=== PATIENT | female | born 1995 | race Caucasian/White ===

== ENCOUNTER 2023-11-16 08:02 | Outpatient (CLI) | payer OTHER, SELFPAY ==
--- OUTSIDE RECORDS SUMMARY | 2023-11-16 08:04 | XMS_ITS | Clinical Summary ---
Author Organization [employer] [facility] Address [place], [place] [address] Care Team Providers Care Squad Leader Name Role Phone Raquel Goodwin MD Primary Care Provider [phone] Wendy Ken MD Unavailable [phone] Allergies No known active allergies Medications Medication Sig Dispensed Refills Start Date End Date Status ., 1.5-30 mg-mcg tab tablet Take by mouth once daily. 05/20/2019 Active Family History Medical History Relation Name Comments Genetic Other cancer great au nt - great grandmother Relation Name Status Comments Other Social History Tobacco Use Types Packs/Day Years Used Date Smoking Tobacco: Never Smokeless Tobacco: Never Alcohol Use Standard Drinks/Week Comments Not Currently 0 (1 standard drink = 0.6 oz pur e alcohol) Social Connections Answer Date Recorded Frequency of Communication with Friends and Fami ly Not on file 06/19/2021 Financial Resource Strain Answer Date R ecorded Difficulty of Paying Living Expenses Not on file 06/19/2021 Difficulty of Paying Living Expenses Not on file 06/19/2021 Sex and Gender Information Value Date Recorded Sex Assigned at Not on file Gender Identity Not on file Sexual Orientation Not on file Obstetrics History Last Filed Vital Signs Vital Sign Reading Time Taken Comments Blood Pressure 121/73 08/29/2019 3:09 PM CDT Pulse 57 08/29/2019 3:09 PM CDT Temperature - - Respiratory Rate 20 08/29/2019 3:06 PM CDT Oxygen Saturation 99% 08/29/2019 3:06 PM CDT Inhaled Oxygen Concentration - - Weight 62.6 kg (138 lb) 08/29/2019 3:06 PM CDT Height 167.6 cm (5' 6) 08/29/2019 3:06 PM CDT Body Mass Index 22.27 08/29/2019 3:06 PM CDT Plan of Treatment Health Maintenance Due Date Last Done Comments Tdap 2005 Depression screening for age 12+ 2006 HIV for age 15-65 2009 Hepatitis C screening for age 18-79 2012 Tetanus booster 2014 BMI (ht and wt on same day) for age 18+ 08/28/2020 08/29/2019 Pap test for age 21-65 11/27/2020 8 (Verified in Care Everywhere or Patient Record) COVID-19 vaccine series (2022-24 season) 2023 Influenza for age 9-49 02/18/2024 Pneumococcal series for age 6-64 Aged Out No longer eligible based on patient's age to complete this topic Care Teams Squad Leader Relationship Specialty [place] [address] [place] [address] PCP - General Family Practice 08/29/19 Wendy Ken MD [address] [place] [address] Cardiology Cardiovascular Disease 08/29/19
--- NOTE | 2023-11-16 08:15 | CRLHL7_ITS ---
For Patients: As a result of the Cures Act, medical imaging exams and procedure reports are released immediately into your electronic medical record. You may view this report before your referring provider. If you have questions, please contact your health care provider. INDICATION: First trimester scan, establish dates. COMPARISON: None. TECHNIQUE: Real-time champion-scale imaging of the pelvis was performed. FINDINGS: Sonographic imaging demonstrates a single living intrauterine gestation. The embryo demonstrates a regular cardiac rate measuring 165 beats per minute. The embryo`s crown-rump length measurement of 3.4 cm corresponds to a gestational age of 10 weeks 2 days with a sonographic due date of 06/11/2024. There is a normal-appearing yolk sac. There are no gross abnormalities noted within the embryo at this early state of development. The gestational sac has a normal appearance. There is no evidence of a perigestational hemorrhage. The amount of fluid within the sac appears appropriate for gestational age. The cervix is closed. The myometrium appears normal. The ovaries are of normal size. Corpus luteal cyst left ovary. There are no suspicious fluid collections noted in the cul-de-sac. IMPRESSION: Normal first trimester OB ultrasound exam. Gestational age calculated at 10 weeks 2 days with a sonographic due date of 06/11/2024. Dictated by Nelson Yu MD @ 11/16/2023 10:42:25 AM (Electronically Signed)
== END 2023-11-16 08:03 | disposition home or self-care (01) ==
LOC: US 08:03
PROVIDERS: PCP Family Medicine; Visit Provider Physician Assistant
DX: Z34.91 Encounter for supervision of normal pregnancy, unspecified, first trimester (principal); Z3A.10 10 weeks gestation of pregnancy
CPT/HCPCS: 76801; 86592; 86703; 86704; 86706; 86762; 86787; 86803; 86850; 86900; 86901; 87086; 87340; 87491; 87591

== ENCOUNTER 2023-11-16 09:38 | Outpatient (CLI) | payer OTHER, SELFPAY ==
--- OUTSIDE RECORDS SUMMARY | 2023-11-16 09:41 | XMS_ITS | Clinical Summary ---
Author Organization [employer] [facility] Address [place], [place] [address] Care Team Providers Care Research And Development Researcher Name Role Phone Raquel Goodwin MD Primary Care Provider [phone] Wendy Ken MD Unavailable [phone] Allergies No known active allergies Medications Medication [...] age to complete this topic Care Teams Research And Development Researcher Relationship Specialty [place] [address] [place] [address] PCP - General Family Practice 08/29/19 Wendy Ken MD [address] [place] [address] Cardiology Cardiovascular Disease 08/29/19
[2023-11-16 15:51] LABS: Chlamydia DNA Amplified* NOT DETECTED (No Detected); GC DNA Amplified* NOT DETECTED (No Detected)
== END 2023-11-16 09:39 | disposition home or self-care (01) ==
PROVIDERS: PCP Family Medicine; Visit Provider Physician Assistant
DX: Z34.91 Encounter for supervision of normal pregnancy, unspecified, first trimester (principal); Z12.4 Encounter for screening for malignant neoplasm of cervix; Z3A.09 9 weeks gestation of pregnancy
CPT/HCPCS: 86592; 86703; 86704; 86706; 86762; 86787; 86803; 86850; 86900; 86901; 87086; 87340; 87491; 87591

== ENCOUNTER 2024-02-02 13:08 | Outpatient (CLI) | payer OTHER, SELFPAY ==
--- NOTE | 2024-02-02 13:15 | CRLHL7_ITS ---
For Patients: As a result of the Century Cures Act, medical imaging exams and procedure reports are released immediately into your electronic medical record. You may view this report before your referring provider. If you have questions, please contact your health care provider. INDICATION: Evaluate anatomy. COMPARISON: 11/16/2023 TECHNIQUE: Real time champion scale imaging of the fetus was performed as well as color Doppler analysis of the umbilical vessels. FINDINGS: Sonographic imaging demonstrates a single living intrauterine gestation. Fetus demonstrates a regular cardiac rate of 145 beats per minute. Fetus has a breech position. The placenta lies anteriorly without evidence of placenta previa. Edge of the placenta is located 3.7 cm from the internal cervical os. Amniotic fluid volume appears normal. Single deepest vertical pocket: 5.0 cm. The cervix is closed and measures 4.2 cm in length. The composite ultrasound gestational age is calculated at 22 weeks 1 day with an estimated sonographic due date of 06/06/2024. The estimated weight is 444 grams which lies at the 87th %. The following biometric measurements were obtained: Biparietal diameter: 5.1 cm/21 weeks 2 days 68th% Head circumference: 19.7 cm/21 weeks 6 days 82nd% Abdominal circumference: 17.2 cm/22 weeks 1 day 83rd% Femur length: 3.5 cm/21 weeks 1 day 50th% The HC/AC ratio measures: 1.14 range (1.05-1.23) On anatomic survey, there is a normal appearance of the cerebral ventricles, cavum septi pellucidi, cisterna magna and cerebellum. The nose, lips, and facial profile appear normal. The cervical, thoracic and lumbar spine are well visualized and appear normal. There is a normal four-chamber heart view and the left and right ventricular outflow tracts appear normal. The diaphragm and stomach appear normal. The kidneys and bladder also appear normal. There is a normal three-vessel cord and cord insertion site. The four extremities appear normal. IMPRESSION: Sonographic gestational age 22 weeks 1 day and sonographic due date of 06/06/2024. Sonographic age 9 days ahead of the clinical age. Estimated weight 87th percentile. Abdominal circumference 83rd percentile. No intrinsic abnormalities noted on anatomic survey. Dictated by Nelson Yu MD @ 02/02/2024 3:29:44 PM (Electronically Signed)
== END 2024-02-02 13:09 | disposition home or self-care (01) ==
LOC: US 13:08
PROVIDERS: PCP Family Medicine; Visit Provider Obstetrics & Gynecology
DX: Z34.92 Encounter for supervision of normal pregnancy, unspecified, second trimester (principal); Z3A.22 22 weeks gestation of pregnancy
CPT/HCPCS: 76805

== ENCOUNTER 2024-04-05 15:06 | Outpatient (CLI) | payer OTHER, SELFPAY ==
--- OUTSIDE RECORDS SUMMARY | 2024-04-09 14:57 | XMS_ITS | Clinical Summary ---
Author Organization [employer] [facility] Address [place], [place] [address] Care Team Providers Care Program Writer Name Role Phone Raquel Goodwin MD Primary Care Provider [phone] Wendy Ken MD Unavailable [phone] Allergies No known active allergies Medications Medication [...] Everywhere or Patient Record) COVID-19 vaccine series (2023- season) 2024 Influenza for age 9-49 02/18/2024 Pneumococcal series for age 6-64 Aged Out No longer eligible based on patient's age to complete this topic Care Teams Program Writer Relationship Specialty [place] [address] [place] [address] PCP - General Family Practice 08/29/19 Wendy Ken MD [address] [place] [address] Cardiology Cardiovascular Disease 08/29/19
== END 2024-04-05 15:07 | disposition home or self-care (01) ==
LOC: NFLDREF 04-09 14:55
PROVIDERS: PCP Family Medicine; Referring Provider Family Medicine; Visit Provider Obstetrics & Gynecology
DX: Z34.93 Encounter for supervision of normal pregnancy, unspecified, third trimester (principal); Z3A.29 29 weeks gestation of pregnancy
CPT/HCPCS: 86592

== ENCOUNTER 2024-05-17 13:45 | Outpatient (CLI) | payer OTHER, SELFPAY ==
[2024-05-18 14:42] LABS: Strep B DNA Probe Negative (Negative)
[2024-05-18 14:45] LABS: Strep B Susceptibility Needed? No
== END 2024-05-17 13:46 | disposition home or self-care (01) ==
PROVIDERS: PCP Family Medicine; Visit Provider Obstetrics & Gynecology
DX: Z34.93 Encounter for supervision of normal pregnancy, unspecified, third trimester (principal); Z3A.35 35 weeks gestation of pregnancy
CPT/HCPCS: 82565; 82570; 84156; 84450; 84460; 84520; 87081; 87653

== ENCOUNTER 2024-05-17 14:15 | Outpatient (CLI) | payer OTHER, SELFPAY ==
--- OUTSIDE RECORDS SUMMARY | 2024-05-17 14:22 | XMS_ITS | Clinical Summary ---
Author Organization [employer] [facility] Address [place], [place] [address] Care Team Providers Care Principal Strategist Name Role Phone Raquel Goodwin MD Primary Care Provider [phone] Wendy Ken MD Unavailable [phone] Allergies No known active allergies Medications Medication [...] age to complete this topic Care Teams Principal Strategist Relationship Specialty [place] [address] [place] [address] PCP - General Family Practice 08/29/19 Wendy Ken MD [address] [place] [address] Cardiology Cardiovascular Disease 08/29/19
[2024-05-17 14:47] VITALS: BP 126/70; PULSE 75
[2024-05-17 15:02] VITALS: BP 126/73; PULSE 80
[2024-05-17 15:17] VITALS: BP 122/69; PULSE 70
[2024-05-17 15:32] VITALS: BP 123/70; PULSE 74
[2024-05-17 15:48] VITALS: BP 119/72; PULSE 74
[2024-05-17 16:02] VITALS: BP 125/76; PULSE 71
--- NOTE | 2024-05-17 16:25 | PC.OBNST ---
NST Note NST Note Start: 05/17/24 15:00 Freq: ONCE Status: Active Protocol: Document 05/17/24 15:[address] [facility] (Rec: 05/17/24 16:[address] [facility] Desktop) NST Note 1 Para (# of births) 0 EDC 06/15/24 Gestational Age In Weeks & Days 35 Weeks & 6 Days Patient Presented with Complaint(s) of Other Other Complaints Elevated BP in clinic Reactive Yes Appropriate for Gestational Age Yes MACKENZIE Méndez RN Date 05/17/24 Reactive Yes Appropriate for Gestational Age Yes MACKENZIE Salvador RN Date 05/17/24 OB NST charge Yes Complete NST Note via Write Note Yes The provider's electronic signature indicates the NST is reactive/appropriate for gestational age. *Note to provider: If an addendum is required, open the patient's chart and click on the note under the Nurse/Allied Health tab.
== END 2024-05-17 16:15 | disposition home or self-care (01) ==
LOC: OB OUT 14:20 → OB 14:34
PROVIDERS: PCP Family Medicine; Visit Provider Obstetrics & Gynecology
DX: Z34.93 Encounter for supervision of normal pregnancy, unspecified, third trimester (principal); Z3A.35 35 weeks gestation of pregnancy
CPT/HCPCS: 59025; G0463

== ENCOUNTER 2024-06-20 15:46 | Inpatient (IN) | payer OTHER, SELFPAY ==
[2024-06-20] VITALS (19 sets, daily range): BP systolic 127–146; BP diastolic 69–93; PULSE 65–90; RESP 16–20; TEMP 36.7–36.9; O2SAT 95–99; BMI 31.4
--- NOTE | 2024-06-20 16:02 | PM.OBHPLI ---
OB - H&P: HPI Labor/Induction History of Present Illness Chief Complaint: The patient is a [] year old [] para [] at [] weeks gestation by [], who presents with []. [] Chief complaint: Maternity Narrative: Bianca Aragon is a 28 year old female Specific Issues/Plans Spouse: Wil. Baby: Boy! León H&P done by Gaurav Baxter CNM on 05/24/24 #Elevated BP on 05/17/2024 at 35w6d Preeclampsia labs Sent to L&D for BP monitoring. # anxiety Lexapro 10 mg Flu: Declined Covid: Declined Tdap: 01/23/2024 RSV: 04/04/2024 34wk Hgb: 12.2 (05/03/24) 36wk GBS: Negative (05/17/24) [id number] 01/12/2024: No increased risk for aneuploidy: Male Meds Home Medications and Allergies Home Medications ?Medication ?Instructions ?Recorded ?Confirmed ?Type docosahexaenoic acid 200 mg 200 mg PO DAILY 11/16/23 06/20/24 History capsule ( DHA) Saccharomyces boulardii 250 mg 250 mg PO QDAY 02/02/24 06/20/24 History capsule (Daily Probiotic (S. boulardii)) Allergies Allergy/AdvReac Type Severity Reaction Status Date / Time No Known Drug Allergies Allergy Verified 06/20/24 13:19 OB - H&P: Exam Physical Exam: Vital signs: Temp Pulse BP Pulse Ox 98.1 F 70 131/83 98 06/20/24 13:10 06/20/24 13:10 06/20/24 13:10 06/20/24 13:38
[2024-06-20 17:23] LABS: Amnisure Rom* POSITIVE
[2024-06-20 18:22] LABS: Basophils Percent Auto 0.2 % (0.0-3.0); Eosinophils Percent Auto 0.2 % (0.0-7.0); Hematocrit 38.6 % (33.0-51.0); Hemoglobin* 12.8 gm/dL (12.0-16.0); Immature Granulocytes Pct Auto 1.1 %; Lymphocytes Percent Auto 11.9 % (20-44); Mean Corpuscular HGB Conc 33 gm/dL (32-36); Mean Corpuscular Hemoglobin 27 pg (26-34); Mean Corpuscular Volume 80 fL (80-100); Monocytes Percent Auto 4.6 % (0.0-11.0); Platelet Count* 144 K/uL (140-440); RDW Coefficient of Variation % 14.3 % (11.5-15.5); Red Blood Count 4.83 m/uL (4.00-5.20); White Blood Count* 13.05 K/uL (4.50-11.00)
[2024-06-20] MEDS: OXYTOCIN 30 unit/500 ML in NS 30 UNIT/500 ML BAG IVPB (18:26)
[2024-06-20] MEDS: LACTATED RINGERS 1000 ML 1,000 ML 125 ML IV (18:26)
[2024-06-20 18:37] LABS: Slide Review Reflex No
[2024-06-20 19:05] LABS: Alanine Aminotransferase* 11 U/L (4-35); Aspartate Amino Transferase* 17 U/L (12-35); Blood Urea Nitrogen* 10 mg/dL (5-24); Creatinine* 0.6 mg/dL (0.5-1.5); Est. Creatinine Clearance* 129.51; Estimated Glomerular Filt Rate 125 ml/min
--- NOTE | 2024-06-20 21:15 | W.PM.LDBA ---
Subjective History of Present Illness Time Seen by Provider: 15:00 Date Seen: 06/20/24 Narrative: Patient is being admitted to Labor and Delivery for regular contractions. She is a 28 year old at 40.5 weeks gestation. Her full history and physical was dictated by Gaurav Baxter CNM on 05/24/24. Please see this for details. Patient was having Q5 minutes contractions all day and decided to come in for an evaluation. Initial cervical exam /. She had a couple of subtle late decelerations during some contractions early on in the monitoring. I recommended that she stay for labor and possible augmentation as she is already 40.5 weeks. Bianca was amenable to staying and possibly having an augmentation of labor. Would like to see if she's able to make changes on her own prior to starting pitocin. Active movements. Denies LOF, vaginal discharge or vaginal bleeding. Specific Issues/Plans Spouse: Wil. Baby: Boy! León H&P done by Gaurav Baxter CNM on 05/24/24 #Elevated BP on 05/17/2024 at 35w6d Preeclampsia labs Sent to L&D for BP monitoring. # anxiety Lexapro 10 mg Flu: Declined Covid: Declined Tdap: 01/23/2024 RSV: 04/04/2024 34wk Hgb: 12.2 (05/03/24) 36wk GBS: Negative (05/17/24) [id number] 01/12/2024: No increased risk for aneuploidy: Male OB - Problem Based A/P Additional Plan (1) Uterine contractions: Status: Acute (2) Generalized anxiety disorder: Status: Chronic Plan - Patient consented to staying for delivery - Expectant management for now. If minimal change on next check, she would like to start pitocin. - cEFM due to intermittent late decelerations - GBS negative - Pain control: will eventually want an epidural. OB Exam Physical Exam Vital signs: Temp Pulse Resp BP Pulse Ox 98.4 F 80 16 139/81 98 06/20/24 20:15 06/20/24 20:15 06/20/24 20:15 06/20/24 20:15 06/20/24 13:38
[2024-06-20] MEDS: LIDOCAINE 2% (PF) 5 ML VIAL EPIDURAL (23:53)
[2024-06-20] MEDS: ROPIVACAINE 0.2% 100 ml 100 ML 12 MG EPIDURAL (23:55)
--- NOTE | 2024-06-20 23:59 | PM.ANBPRC ---
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 Marital status: . Faith/cultural needs: no. Chemical or radiation exposure: no. Pre- tobacco use: no. Pre- alcohol use: 2 per week. Current tobacco use: no. Current alcohol use: no. Recreational drug use: no. Dietary restrictions: no. Blood transfusion acceptable in an emergency: yes. PSYCHOSOCIAL HISTORY: History of depression or currently depressed: no. Current or past physical, emotional, or sexual mistreatment: no. Problems that will make it hard to make it to appointments: no. What is your current living situation?: I presently have a place to live Problems where you live: no known problems In the past 12 months, utilities in danger of being shut off: no In past 12 months, lack of transportation kept you from medical appts, meetings, work, or getting things needed for daily living: no In the past 12 mos, have been you worried that your food would run out before you had money to buy more?: never true In the past 12 mos, the food you bought just didn't last and you didn't have money to buy more?: never true Smoking Status: Never smoker How often does anyone, including family, friends and others, physically hurt you: never How often does anyone, including family, friends and others, insult or talk down to you: never How often does anyone, including family, friends and others, threaten you with harm: never How often does anyone, including family, friends and others, scream or curse at you: never Meds Home Medications and Allergies Home Medications ?Medication ?Instructions ?Recorded ?Confirmed ?Type docosahexaenoic acid 200 mg 200 mg PO DAILY 11/16/23 06/20/24 History capsule ( DHA) Saccharomyces boulardii 250 mg 250 mg PO QDAY 02/02/24 06/20/24 History capsule (Daily Probiotic (S. boulardii)) Allergies Allergy/AdvReac Type Severity Reaction Status Date / Time No Known Drug Allergies Allergy Verified 06/20/24 13:19 Results Labs Labs: Laboratory Results - last 24 hr 06/20/24 06/20/24 16:30 18:17 WBC 13.05 H RBC 4.83 Hgb 12.8 Hct 38.6 MCV 80 MCH 27 MCHC 33 RDW Coeff of Joshua 14.3 Plt Count 144 Neut % (Auto) 82.0 H Lymph % (Auto) 11.9 L Wright % (Auto) 4.6 Eos % (Auto) 0.2 Baso % (Auto) 0.2 Neut # (Auto) 10.70 H Lymph # (Auto) 1.60 Wright # (Auto) 0.60 Eos # (Auto) 0.00 Baso # (Auto) 0.00 Abs Immat Gran (auto) 0.10 Imm/Tot Granulo (auto) 1.1 BUN 10 Creatinine 0.6 Estimated Creat Clear 129.51 Estimated GFR 125 AST 17 ALT 11 Membrane Rupture POSITIVE Blood Type O Positive Antibody Screen NEGATIVE Vital Signs Vital Signs: Last Vital Signs Temp 98.2 F 06/20/24 23:01 Pulse 79 06/20/24 23:56 Resp 20 06/20/24 23:01 BP 127/69 06/20/24 23:56 Pulse Ox 97 06/20/24 23:55 Weight: 88.496 kg Height: 167.64 cm Anesthesia Procedures Epidural Insertion Patient Location: OB Start Time: 23:30 Stop Time: 23:59 Start Date: 06/20/24 Stop Date: 06/20/24 Reason for Block: primary anesthetic Patient Position: sitting Performed By: Alfredo Valdes Preanesthetic Checklist: IV checked, risks and benefits discussed, surgical consent, monitors and equipment checked, pre-op evaluation, timeout performed and anesthesia consent Prep: chlorhexidine gluconate Monitoring: blood pressure monitoring, environmental monitoring technician, continuous pulse oximetry and heart rate Approach: midline Vertebral Space: lumbar (1-5) Needle Type: Tuohy needle Injection Technique: continuous catheter (catheter) Needle gauge: 17 Needle Length (cm): 10 cm Needle Insertion Depth (cm): 5 Catheter Gauge: 19 Catheter Type: multi-orifice Catheter at skin depth (cm): 10 Test Dose Result: negative and lidocaine 1.5% with epinephrine 1 to 200,000
[2024-06-21] VITALS (88 sets, daily range): BP systolic 102–157; BP diastolic 56–86; PULSE 57–112; RESP 16–20; TEMP 36.3–37.2; O2SAT 95–99
[2024-06-21] MEDS: LACTATED RINGERS 1000 ML 1,000 ML 125 ML IV ×3 (00:02→11:31)
[2024-06-21] MEDS: PHENYLEPHRINE 100 MCG/ML SYRINGE IVP ×3 (00:12→04:04)
[2024-06-21 01:32] LABS: Creatinine Urine 63.6 mg/dL; Protein Creatinine Ratio Urine 0.27 (0-0.19); Total Protein Urine 17 mg/dL
--- NOTE | 2024-06-21 07:13 | PM.OBPNL ---
Subjective Time Seen by Provider: 07:00 Date Seen: 06/21/24 Narrative: Patient comfortable in thrones position. Objective Vital Signs: Last Vital Signs Temp 98 F 06/21/24 05:58 Pulse 63 06/21/24 07:02 Resp 20 06/21/24 05:58 BP 125/79 06/21/24 07:02 Pulse Ox 97 06/21/24 00:45 Pelvic Exam Dilation (cm): 6 Effacement (%): 90 Comments: Tense forebag. Forebag was ruptured with amniohook with patient's consent. Small amount of fluid expressed - clear. Assessment Assessment: active labor Station: 0 Amniotic Membrane Status: SROM Status: Category ll Heart Rate Baseline: 130 Housing Installer Variability: Moderate (6-25) Monitor Accelerations: Present Monitor Decelerations: Variable (intermittent variables )
[2024-06-21] MEDS: ROPIVACAINE 0.2% 100 ml 100 ML 12 MG EPIDURAL ×2 (07:58→15:58)
--- NOTE | 2024-06-21 12:24 | P.OBPN_ITS ---
Subjective Time Seen by Provider: 12:24 Date Seen: 06/21/24 Narrative: Subjective: The patient is comfortable with her epidural.. Pitocin: 6 milliunits/minute. Vital signs: Per electronic medical record. EFM: Baseline 130bpm, positive accelerations, rare small variable deceleratio ns, moderate variability, reactive. Category 2. [place]: Contractions every Dani to minutes. SVE: 8 cm/100 %/+1. Assessment: 28-year-old 1 para 0 at 40 weeks 6 days gestation undergoing induction of labor after PROM. GBS negative. Plan: 1. Continue Pitocin per labor induction protocol. 2. Expect vaginal delivery Objective Vital Signs: Last Vital Signs Temp 98.2 F 06/21/24 12:12 Pulse 75 06/21/24 12:01 Resp 16 06/21/24 12:12 BP 124/68 06/21/24 12:01 Pulse Ox 98 06/21/24 08:03 Pelvic Exam Dilation (cm): 6 Effacement (%): 90 Assessment Station: 0 Amniotic Membrane Status: SROM Status: Category ll Heart Rate Baseline: 130 Monitor Accelerations: Present Monitor Decelerations: Variable (intermittent variables )
[2024-06-21] MEDS: LIDOCAINE 1 % PF 30 ML INJECTION (17:37)
[2024-06-21] MEDS: miSOPROStoL 800 MCG/4 TABLET PR (17:57)
--- NOTE | 2024-06-21 18:13 | W.PM.OBVAGDE ---
OB Procedure Vag Delivery Mother Details Mother Details: Bianca is a 28 year-old G 1 P 0 now 1 admitted on 06/20/2024 at 6:00 p.m. at 40 Weeks, 5 Days gestation for PROM at 4:30 p.m. PROM occurred at 4:30 p.m. on 06/20/2024 with clear fluid. Light meconium-stained amniotic fluid was noted during labor. Labor Analgesia: Epidural Pitocin: Yes Labor onset: 06/20/2024 at 8:30 p.m.. Complete: 06/21/2024 at 4:02 p.m.. Pushin06/21/2024 at 4:19 p.m.. heart tones during second stage were: moderate variability with intermittent variable decelerations to the 110s, immediate return to baseline. Category 2. At 1728 a viable male delivered in vertex direct OA presentation over first-degree vaginal and bilateral first-degree periurethral lacerations via spontaneous vaginal delivery. The infant was placed on maternal abdomen. Cord was clamped and cut after a 60 second delay. The infant was moved to the warmer and is Nose and mouth were bulb suctioned than his stomach was suctioned with the WrapMaile suction instrument. Infant weight 8 lb 15 oz. 7 at 1 minute and 9 at 5 minutes. Shoulder dystocia: No. Nuchal cord: No Placenta delivered spontaneously and complete at 5:48 p.m. with a 3 vessel cord. Laceration(s): All first-degree: Bilateral periurethral and vaginal. Repaired using 4-0 Vicryl suture in a running manner. Blood loss: 300 mL. Blood loss measurement type: Quantitative Sponge and needles counts are correct. Specimen: Placenta due to gestational hypertension Mother and infant were stable after delivery. Infant's name: Mau Aragon The patient is planning on breast feeding. : 1 Para: 0 Weeks Gestation: 40 Admission Date: 06/20/24 Additional Details Amniotic Membrane Status: SROM Amniotic Membrane Rupture Date: 06/20/24 Amniotic Membrane Rupture Time: 16:30 Amniotic Membrane Fluid Description: Meconium Stained Analgesia/Anesthesia Type: Epidural Waterbirth: No Pitcoin: Yes Intrapartal Events: Labor Augmentation and ROM >18 Hours Delivery augmentation: pitocin Labor Onset: 20:30 Complete: 16:02 Pushin:19 Heart: heart tones during second stage were moderate variability with intermittent variable decelerations to the 110s, immediate return to baseline. Category 2. Delivery Details Delivery Date: 06/21/24 Delivery Time: 17:28 Route of delivery: Infant Gender: Male Infant Viability: Alive; Heart Rate Present Position at Delivery: OA Delivery Details: Delivered via spontaneous vaginal delivery. Infant was placed on maternal abdomen.? Cord was clamped and cut after a 60 second delay. The infant was taken to the warmer to be stimulated and have his mouth and stomach suctioned. Nose and mouth were bulb suctioned.? weight 8 lb 15 oz. 1 Minute Interval Total Score: 7 5 Minute Interval Total Score: 9 Additional Details Shoulder Dystocia: No Placenta Delivery Time: 17:48 Placental Delivery Description: Spontaneous Delivery repair: Vicryl Procedure Done: Global Blood Loss: 300 Laceration: Periurethral - 1st Degree Blood Loss Measurement Type: QBL Bakri Used: No Sponge/Need Count Correct: Yes Cord Vessel Description: 3 Vessels Event Summary Status: Mother and were stable after delivery. Disposition: floor
[2024-06-21] MEDS: ESCITALOPRAM 10 MG TABLET PO (20:45)
[2024-06-21] MEDS: IBUPROFEN 600 MG TABLET PO (20:45)
[2024-06-22 04:40] VITALS: PULSE 72; RESP 16; TEMP 36.4; O2SAT 96
[2024-06-22 08:44] VITALS: BP 113/77; PULSE 85; RESP 16; TEMP 36.3; O2SAT 95
[2024-06-22 09:01] LABS: Hemoglobin* 11.1 gm/dL (12.0-16.0); Mean Corpuscular HGB Conc 33 gm/dL (32-36); Mean Corpuscular Hemoglobin 27 pg (26-34); Mean Corpuscular Volume 82 fL (80-100); Platelet Count* 130 K/uL (140-440); Red Blood Count 4.17 m/uL (4.00-5.20); White Blood Count* 12.26 K/uL (4.50-11.00)
[2024-06-22 09:09] LABS: Slide Review Reflex No
[2024-06-22 09:16] LABS: Aspartate Amino Transferase* 20 U/L (12-35)
[2024-06-22 09:17] LABS: Alanine Aminotransferase* 10 U/L (4-35); Blood Urea Nitrogen* 12 mg/dL (5-24); Creatinine* 0.8 mg/dL (0.5-1.5); Est. Creatinine Clearance* 97.13; Estimated Glomerular Filt Rate 102 ml/min
--- NOTE | 2024-06-22 11:47 | PM.OBPNVD1 ---
OB - PN:Subj Subjective Date Seen: 06/22/24 Patient comments OB post-: no complaints [place] status: and doing well Narrative: The patient feels well. Denies fevers, abdominal or perineal pain. Working on . OB - PN: Obj Exam Physical Exam: Vital signs: Temp Pulse Resp BP Pulse Ox O2 Del Method 97.4 F L 85 16 113/77 95 Room Air 06/22/24 08:44 06/22/24 08:44 06/22/24 08:44 06/22/24 08:44 06/22/24 08:44 06/22/24 08:44 Constitutional: Constitutional: no acute distress Routine Neck Exam: Neck: Present normal inspection Routine Respiratory Exam: Respiratory: Present CTA bilaterally; Absent respiratory distress Routine Cardiovascular Exam: Cardiovascular: Present RRR; Absent murmur Routine Abdominal Exam: Abdominal: Present soft; Absent tenderness Fundus: Present firm Routine Extremities Exam: Extremities: Present normal inspection and pedal edema; Absent calf tenderness Routine Neurological Exam: Neurological: Present alert and oriented X3 Routine Psychiatric Exam: Psychiatric: Present normal affect OB - PN: Obj Data Labs Labs: Laboratory Results - last 24 hr 06/22/24 08:55 WBC 12.26 H RBC 4.17 Hgb 11.1 L Hct 34.0 MCV 82 MCH 27 MCHC 33 Plt Count 130 L BUN 12 Creatinine 0.8 Estimated Creat Clear 97.13 Estimated GFR 102 AST 20 ALT 10 OB - PN: A/P Delivery Assessment and Plan (1) (normal spontaneous vaginal delivery): Status: Acute (2) Obstetric vaginal laceration with first degree perineal laceration: Status: Acute (3) Lactating mother: Status: Acute Plan day: 1 Plan: routine care
[2024-06-22 12:55] VITALS: BP 119/81; PULSE 85; RESP 17; TEMP 36.6
[2024-06-22 16:00] VITALS: BP 117/75; PULSE 97; RESP 14; TEMP 36.6
[2024-06-22 17:49] LABS: Rapid Plasma Reagin (RPR) Non Reactive (Non Reactive)
[2024-06-22 21:31] VITALS: BP 123/77; PULSE 88; RESP 16; TEMP 36.7; O2SAT 95
[2024-06-23 01:03] VITALS: BP 118/77; PULSE 76; RESP 20; O2SAT 97
[2024-06-23] MEDS: ESCITALOPRAM 10 MG TABLET PO (01:07)
[2024-06-23 05:00] VITALS: BP 123/77; PULSE 76; RESP 16; O2SAT 95
--- NOTE | 2024-06-23 05:55 | PM.ANPOST ---
Post Anesthesia Note Post Anesthesia Note Patient seen: Inpatient Respiratory Status: adequate Cardiovascular Status: adequate Mental Status: baseline Pain: adequate Temp: baseline Anesthetic awareness: N/A Complications: none Follow care: none
[2024-06-23 08:45] VITALS: BP 120/79; PULSE 85; RESP 18; TEMP 36.7; O2SAT 96
[2024-06-23] MEDS: LANOLIN CREAM 1 APPLIC TOPICAL (09:10)
--- NOTE | 2024-06-23 10:10 | PM.OBPNVD1 ---
OB - PN:Subj Subjective Date Seen: 06/23/24 Patient comments OB post-: no complaints, tolerating diet and flatus present status: and doing well (Still on antibiotics, cultures pending) Narrative: The patient is doing well. Her lochia is decreasing. OB - PN: Obj Exam Physical Exam: Vital signs: Temp Pulse Resp BP Pulse Ox O2 Del Method 98.1 F 85 18 120/79 96 Room Air 06/23/24 08:45 06/23/24 08:45 06/23/24 08:45 06/23/24 08:45 06/23/24 08:45 06/23/24 08:45 Constitutional: Constitutional: no acute distress Routine Abdominal Exam: Abdominal: Present soft; Absent tenderness Fundus: Present firm Routine Extremities Exam: Extremities: Present normal inspection and pedal edema; Absent calf tenderness Routine Neurological Exam: Neurological: Present alert and oriented X3 Routine Psychiatric Exam: Psychiatric: Present normal affect OB - PN: Obj Data Labs Labs: Laboratory Results - last 24 hr 06/20/24 18:17 RPR Screen Non Reactive OB - PN: A/P Delivery Assessment and Plan (1) (normal spontaneous vaginal delivery): Status: Acute (2) Obstetric vaginal laceration with first degree perineal laceration: Status: Acute (3) Lactating mother: Status: Acute Plan day: 2 Plan: routine care
[2024-06-23 12:14] VITALS: BP 110/72; PULSE 84; RESP 18; O2SAT 96
[2024-06-23 14:45] VITALS: BP 113/75; PULSE 88; RESP 17; TEMP 36.4; O2SAT 95
[2024-06-23 20:10] VITALS: BP 136/85; PULSE 96; RESP 16; TEMP 36.9; O2SAT 96
[2024-06-24 00:04] VITALS: BP 126/87; PULSE 83; RESP 16; TEMP 36.8; O2SAT 96
[2024-06-24] MEDS: ESCITALOPRAM 10 MG TABLET PO (00:06)
[2024-06-24 06:00] VITALS: BP 138/87; PULSE 112; RESP 20; TEMP 36.6; O2SAT 97
--- NOTE | 2024-06-24 07:23 | PM.OBDSVD1 ---
DS: Providers Provider Date Seen: 06/24/24 Date of admission: 06/20/24 15:46 Primary care physician: Nelson Whalen MD Admitting Clinician: Lizbeth Wray MD Attending Physician on discharge: Leidy Baxter CNM Date of Discharge: 06/24/24 DS: Diagnosis Discharge Diagnosis (1) care and examination of lactating mother: Status: Acute (2) Lactating mother: Status: Acute (3) Obstetric vaginal laceration with first degree perineal laceration: Status: Acute (4) Gestational hypertension: Status: Acute Exam Narrative: Exam Narrative: GENERAL APPEARANCE:? normal affect, alert, no distress MOOD:? appropriate CHEST:? clear to auscultation HEART:? regular rate and rhythm ABDOMEN:? soft, non-tender the uterine fundus is firm At Umbilicus, Midline and is appropriate for the stage of recovery. PERINEUM:? mild edema of the perineum, there is a 1st degree Perineal Laceration,? that is healing well. EXTREMITIES:? normal and edema Const: Vital Signs, click to edit/add: Vital Signs - 24 hr 06/23/24 08:45 06/23/24 12:14 06/23/24 14:45 Temperature 98.1 F 97.6 F Pulse Rate [Pulse Oximeter] 85 84 88 Respiratory Rate 18 18 17 Blood Pressure [Ri ght Arm] 120/79 110/72 113/75 Pulse Oximetry 96 96 95 Oxygen Delivery Me thod Room Air Room Air Room Air 06/23/24 20:10 06/24/24 00:04 06/24/24 06:00 Temperature 98.4 F 98.2 F 98 F Pulse Rate [Pulse Oximeter] 96 83 112 H Respiratory Rate 16 16 20 Blood Pressure [Ri ght Arm] 136/85 126/87 138/87 Pulse Oximetry 96 96 97 Oxygen Delivery Me thod Room Air Room Air Room Air Documenting provider has reviewed patient's vital signs: yes OB - DS: Summary Hospital Course Hospital Course: Bianca is a 28 y.o. who was admitted to [facility] for labor. ?She had an uncomplicated NVD.?The patient feels well. ?The pain is well controlled with current medications. ?She has no new complaints. ?She is breast feeding and reports things are going well.? the patient has done well.? Vitals have been stable.? She has remained afebrile.? Has a good appetite, is tolerating a general diet. ?She is voiding without difficulty.? She is passing gas and has not had a bowel movement.? She is ambulating and denies any dizziness.? Has Small amount of rubra lochia. ?She is undecided on what she is planning for prevention. During her hospital stay she has developed GHTN, currently BPs are stable running below 140/90's. Peripartum Data Infant delivery method: Vaginal Laceration description: Periurethral - 1st Degree complications: none Infant Gender: Male Discharge Plan: Home Time Spent with Patient Time attestation: Total time spent providing and/or coordinating discharge services: Discharge Plan Discharge Disposition: Home, Self-Care Date of Admission: 06/20/24 15:46 Attending Provider on Discharge: Leidy Baxter Primary Care Provider: Nelson Whalen Condition: Stable Anticipated Discharge Date/Time: 06/24/24 12:00 Discharge Medications: New acetaminophen 500 mg Tablet 1,000 mg PO Q6H PRNQty: 0 0RF docusate sodium 100 mg Capsule 100 mg PO BID PRNQty: 90 0RF ibuprofen 600 mg Tablet 600 mg PO Q6H PRNQty: 60 0RF Continued escitalopram oxalate 10 mg tablet 10 mg PO QDAY Qty: 90 3RF DHA 200 mg capsule 200 mg PO DAILY Saccharomyces boulardii [Daily Probiotic (S. boulardii)] 250 mg capsule 250 mg PO QDAY Discharge Orders: Discharge Order (Routine); Ordered 06/24/24 Ordered By: Leidy Baxter Patient Education: OB Over the Counter Medication Information, OB Vaginal/Breast Feeding Additional Instructions: Discharge instructions were reviewed with the patient including signs and symptoms of infection and home going medications Nothing vaginally for 6 weeks: no tampons or intercourse Off Work or School for 6 weeks Follow [facility] for a BP check?06/26 or 06/27. Call with BP greater than or equal to 150/100 2-week visit: discuss infant feeding concerns, review control options and screen for anxiety/depression. 6-week visit for an annual exam. consultation services are available to all mothers and babies for the first year after delivery.? To make an appointment, please call [phone]. Activity Level: Activity as Tolerated Discharge Diet: Regular Follow Up Appointments: [facility] [Provider Group] Forms: [employer] Info Instructions
[2024-06-24 09:36] VITALS: BP 116/78; PULSE 86; RESP 18; O2SAT 97
[2024-06-24] MEDS: DOCUSATE SODIUM 100 MG CAPSULE PO (09:40)
== END 2024-06-24 11:35 | disposition home or self-care (01) | DRG 807 ==
LOC: OB OUT 15:47 → OB 15:47
PROVIDERS: Obstetrics & Gynecology; Admitting Provider Obstetrics & Gynecology; PCP Family Medicine; Visit Provider Obstetrics & Gynecology
DX: O48.0 Post-term pregnancy (principal); Z37.0 Single live birth; O42.02 Full-term premature rupture of membranes, onset of labor within 24 hours of rupture; O76 Abnormality in fetal heart rate and rhythm complicating labor and delivery; O13.4 Gestational [pregnancy-induced] hypertension without significant proteinuria, complicating childbirth; O77.0 Labor and delivery complicated by meconium in amniotic fluid; O70.0 First degree perineal laceration during delivery; O99.344 Other mental disorders complicating childbirth; F41.1 Generalized anxiety disorder; R01.0 Benign and innocent cardiac murmurs; Z3A.40 40 weeks gestation of pregnancy
CPT/HCPCS: 01967; 36415; 82565; 82570; 84112; 84156; 84450; 84460; 84520; 85025; 85027; 86592; 86850; 86900; 86901; 88307; G0463; A9270; J2003; J2371; J2795; J7120

== ENCOUNTER 2024-06-28 10:46 | Outpatient (CLI) | payer OTHER, SELFPAY ==
--- NOTE | 2024-06-28 14:13 | W.PM.LAC.MC ---
Consult Note - Mom Date of Visit Date of visit: 06/28/24 Reason for consultation: Assistance Needed (assess latch) Visit Code: Visit Patient's Information Phone number: [phone] : 1 Para: 1 Allergies No Known Drug Allergies Allergy (Verified 06/20/24 13:19) Mother's Medical History: Medical History (Updated 06/26/24 @ 00:01 by Background Daemon) Benign cardiac murmur ?R01.0 - Benign and innocent cardiac murmurs (ICD-10) Generalized anxiety disorder ?F41.1 - Generalized anxiety disorder (ICD-10) Delivery Information Delivery type: Vaginal Gestational Age: 40+6 Gestational Weight For Age: AGA Weight: 4.06 kg Discharge Weight: 3.804 kg Percentage weight loss: 6.4 Baby's Information Medications: none Baby's Age at Visit: 7 days Baby's Provider or Clinic: [facility] Jaundice: No Past Experience Past Experience: No Current Frequency of Day Feedings: every 2-3 ours Frequency of Night Feedings: usually every 3, cluster fed last night after circumcision Both Breasts: Yes Suck: strong Latch: good but pinchy at times Length of Time: 10-15 min ea side Goals: breastmilk at least 6 months, maybe longer, br vs bottle/EBM still deciding Pumping Pumping: No Supplementing EBM Supplement: No Formula Supplement: No Baby Elimination Number of Wet Diapers a Day: ea feeding Number of BM a Day: ea feeding Breast/Nipple Condition Breast Information: Breasts are symmetrical with rounded lower quadrants, intramammary distance is less than 1.5 inches. No erythema. Nipples are supple, everted prior to feeding. Breast Shape: Round Engorgement: No Maternal Nipple Condition - Left: Common Nipple Maternal Nipple Condition - Right: Common Nipple Sore Nipples: Yes Interventions for Sore Nipples: Lansinoh/Nipple Cream Baby Assessment Skin: Normal Tongue/frenulum: Normal/elastic Palate: Average Lips: Relaxed and Symmetrical Jaw Alignment: Symmetrical Mucosa: [place], moist Onsite Observation Pre-Feed weight: 3.954 kg Post-Feed weight: 4.048 kg Milk Transferred (mL): 54 Position: Cradle and Cross cradle Attachment/latch-on achieved: Easily Suck pattern: Suck burst and normal rest Swallow: Audible, consistent Behavior following feed: Alert, content Pre-Nursing Left Nipple: Within Normal Limits Pre-Nursing Right Nipple: Within Normal Limits Post-Nursing Left Nipple: Within Normal Limits Post-Nursing Right Nipple: Within Normal Limits Assessments/Interventions Assessments/Interventions: observation: Fernanda initially latched on mom's right breast in football hold, had a slightly shallow latch. Unlatched and repositioned baby; mom able to get a deeper latch with reported increased comfort. Mom latched baby on her left side in the cross cradle position with a deeper latch from the beginning and reported less nipple pain. Discussed role of deep latch and decreased nipple pain. answered questions re: pumping for milk supply, pumping when return to work and adding bottles to feeding routine. Education provided: Early feeding cues to maximize timing of latching, Asymmetric latch technique for wide/deep latch to increase milk, Transfer for baby and increase comfort for mom, Supply/demand nature of milk supply, Need for frequent stimulation/milk removal, Alternative feeding methods (SNS, cup, finger feeding, bottling) and Milk collection, storage Handouts Provided: Milk collection/storage Paced bottle feeding Follow-Up Suggested follow up: Appointment as needed Time Spent Time spent with patient (min): 75 (time spent with patient and her ) Meds Home Medications and Allergies Home Medications ?Medication ?Instructions ?Recorded ?Confirmed ?Type docosahexaenoic acid 200 mg 200 mg PO DAILY 11/16/23 06/20/24 History capsule ( DHA) Saccharomyces boulardii 250 mg 250 mg PO QDAY 02/02/24 06/20/24 History capsule (Daily Probiotic (S. boulardii)) Allergies Allergy/AdvReac Type Severity Reaction Status Date / Time No Known Drug Allergies Allergy Verified 06/20/24 13:19
== END 2024-06-28 10:47 | disposition home or self-care (01) ==
PROVIDERS: PCP Family Medicine; Visit Provider Obstetrics & Gynecology
DX: Z39.1 Encounter for care and examination of lactating mother (principal)
CPT/HCPCS: G0463

== ENCOUNTER 2024-06-29 04:06 | Emergency (ER) | payer OTHER, SELFPAY ==
[2024-06-29 04:09] VITALS: BP 126/82; PULSE 89; RESP 16; TEMP 35.9; O2SAT 96; BMI 27.4
--- NOTE | 2024-06-29 04:15 | ED.GENADULT ---
HPI - General Adult General Chief complaint: Post OB/Post- Complication Stated complaint: 7 days vaginal bleeding Time Seen by Provider: 06/29/24 04:15 History of Present Illness HPI narrative: Pt woke up to feed baby, pt experienced a gush of blood run down her leg, happened around 0430. Blood was liquid, did not appear to be a clot. Pt reports no pain . Pt reports a little amount of lightheadedness . Skin color appears normal per . No reports of shortness of breath. 28-year-old woman presenting to the emergency department following a gush of apparent blood that went down her leg when she got up to feed there infant. No clotted blood was noted. She is not having any pain. Not short of breath. Bleeding/lochia had been lightening. 7.5 days . Review of records from that time notes spontaneous and complete placenta. Delivery was aided with Pitocin. There was a 1st degree periurethral tear repaired with Vicryl. complicated by hypertension Related Data Home Medications ?Medication ?Instructions ?Recorded ?Confirmed docosahexaenoic acid 200 mg 200 mg PO DAILY 11/16/23 06/20/24 capsule ( DHA) Saccharomyces boulardii 250 mg 250 mg PO QDAY 02/02/24 06/20/24 capsule (Daily Probiotic (S. boulardii)) Previous Rx's ?Medication ?Instructions ?Recorded escitalopram oxalate 10 mg tablet 10 mg PO QDAY #90 tabs 09/11/23 acetaminophen 500 mg tablet 1,000 mg (2 x 500 mg) PO Q6H PRN 06/24/24 #0 tabs docusate sodium 100 mg capsule 100 mg PO BID PRN #90 caps 06/24/24 ibuprofen 600 mg tablet 600 mg PO Q6H PRN #60 tabs 06/24/24 Allergies Allergy/AdvReac Type Severity Reaction Status Date / Time No Known Drug Allergies Allergy Verified 06/20/24 13:19 Review of Systems Status of ROS: Reports: 6 or more systems reviewed and unremarkable except as noted in History and below 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 Marital status: . Confucianism/cultural needs: no. Chemical or radiation exposure: no. Pre- tobacco use: no. Pre- alcohol use: 2 per week. Current tobacco use: no. Current alcohol use: no. Recreational drug use: no. Dietary restrictions: no. Blood transfusion acceptable in an emergency: yes. PSYCHOSOCIAL HISTORY: History of depression or currently depressed: no. Current or past physical, emotional, or sexual mistreatment: no. Problems that will make it hard to make it to appointments: no. What is your current living situation?: I presently have a place to live Problems where you live: no known problems In the past 12 months, utilities in danger of being shut off: no In past 12 months, lack of transportation kept you from medical appts, meetings, work, or getting things needed for daily living: no In the past 12 mos, have been you worried that your food would run out before you had money to buy more?: never true In the past 12 mos, the food you bought just didn't last and you didn't have money to buy more?: never true Smoking Status: Never smoker How often does anyone, including family, friends and others, physically hurt you: never How often does anyone, including family, friends and others, insult or talk down to you: never How often does anyone, including family, friends and others, threaten you with harm: never How often does anyone, including family, friends and others, scream or curse at you: never Exam Narrative: Exam Narrative: Is feeding her on the left as I enter the room. Pleasant. NAD. Heart in regular rate and rhythm. Abdomen is soft and nontender. Skin is of good color. Appears well perfused. After arrival in the emergency department the quarter-sized clot is noted in undergarments. Chaperoned speculum exam reveals some blood staining over the labia and down the right leg. There is some watery blood accumulating in the vaginal vault. Recently irregular appearing cervical os that feels slowly with a little darkened blood. No brisk fresh bleeding is appreciated. Periurethral laceration looks to be in good repair. Const: Vital Signs, click to edit/add: Vital Signs - 24 hr 06/29/24 04:09 Temperature 96.7 F L Pulse Rate [Left P ulse Oximeter] 89 Respiratory Rate 16 Blood Pressure [Ri ght Upper Arm] 126/82 Pulse Oximetry 96 Oxygen Delivery Me thod Room Air Documenting provider has reviewed patient's vital signs: yes Course Vital Signs Vital signs: Initial Vital Signs Temperature 96.7 F L 06/29/24 04:09 Temperature Source Temporal Artery Scan 06/29/24 04:09 Pulse Rate 89 06/29/24 04:09 Pulse Rhythm Regular 06/29/24 04:09 Respiratory Rate 16 06/29/24 04:09 Blood Pressure 126/82 06/29/24 04:09 Blood Pressure Mean 96 06/29/24 04:09 Blood Pressure Position Sitting 06/29/24 04:09 Pulse Oximetry 96 06/29/24 04:09 Oxygen Delivery Method Room Air 06/29/24 04:09 Vital Signs Temperature 96.7 F L 06/29/24 04:09 Pulse Rate 89 06/29/24 04:09 Respiratory Rate 16 06/29/24 04:09 Blood Pressure 126/82 06/29/24 04:09 Pulse Oximetry 96 06/29/24 04:09 Oxygen Delivery Method Room Air 06/29/24 04:09 Temperature 96.7 F L 06/29/24 04:09 Pulse Rate 89 06/29/24 04:09 Respiratory Rate 16 06/29/24 04:09 Blood Pressure 126/82 06/29/24 04:09 Pulse Oximetry 96 06/29/24 04:09 Oxygen Delivery Method Room Air 06/29/24 04:09 Medical Decision Making MDM Narrative Medical decision making narrative: I suspect combination of factors here with the bleeding that may have been partially related to period of time at rest. This bleeding does not appear to be brisk and typical of retained products or more significant bleed otherwise. Did discuss with OB would been informed prior. No further recommendations at this time although will collect baseline hemoglobin. See patient discharge plan for further discussion Again, congratulations. I will call you if the result of the hemoglobin or hematocrit are concerning. If you have not already scheduled for your 2 week follow-up in clinic next week, please do so. Return for persistent increasing pain, soaking through 1 heavy pad an hour for 2 consecutive hours, repeated golf ball size clots. Medical Records Medical records reviewed: Yes I reviewed the patient's medical records Lab Data Lab results reviewed: Yes I reviewed the patient's lab results Labs: Lab Results 06/29/24 Range/Units 05:06 WBC 9.91 (4.50-11.00) K/uL RBC 4.90 (4.00-5.20) m/uL Hgb 13.1 (12.0-16.0) gm/dL Hct 39.6 (33.0-51.0) % MCV 81 (80-100) fL MCH 27 (26-34) pg MCHC 33 (32-36) gm/dL RDW Coeff of Joshua 13.9 (11.5-15.5) % Plt Count 308 (140-440) K/uL Neut % (Auto) 67.5 (42.0-72.0) % Lymph % (Auto) 21.7 (20-44) % Grainger % (Auto) 6.6 (0.0-11.0) % Eos % (Auto) 1.6 (0.0-7.0) % Baso % (Auto) 0.4 (0.0-3.0) % Neut # (Auto) 6.69 (1.7-7.0) K/uL Lymph # (Auto) 2.15 (0.90-2.90) K/uL Grainger # (Auto) 0.70 (0.00-0.90) K/UL Eos # (Auto) 0.16 (0.00-0.50) K/uL Baso # (Auto) 0.04 (0.00-0.30) K/uL Abs Immat Gran (auto) 0.22 (0.00-0.30) K/uL Imm/Tot Granulo (auto) 2.2 % Discharge Plan Discharge Clinical Impression: bleeding Patient Disposition: Home w/ Parent or Adult Condition: Stable Additional Instructions: Again, congratulations. I will call you if the result of the hemoglobin or hematocrit are concerning. If you have not already scheduled for your 2 week follow-up in clinic next week, please do so. Return for persistent increasing pain, soaking through 1 heavy pad an hour for 2 consecutive hours, repeated golf ball size clots. Activity Level: Activity as Tolerated Discharge Diet: Regular Prescriptions: No Action escitalopram oxalate 10 mg tablet 10 mg PO QDAY Qty: 90 3RF DHA 200 mg capsule 200 mg PO DAILY Saccharomyces boulardii [Daily Probiotic (S. boulardii)] 250 mg capsule 250 mg PO QDAY acetaminophen 500 mg Tablet 1,000 mg PO Q6H PRNQty: 0 0RF docusate sodium 100 mg Capsule 100 mg PO BID PRNQty: 90 0RF ibuprofen 600 mg Tablet 600 mg PO Q6H PRNQty: 60 0RF Follow Up/Referrals: Nelson Whalen MD [Primary Care Provider] - Stand Alone Forms: [email or web address] Info Instructions
[2024-06-29 05:12] LABS: Basophils Absolute Auto 0.04 K/uL (0.00-0.30); Basophils Percent Auto 0.4 % (0.0-3.0); Eosinophils Absolute Auto 0.16 K/uL (0.00-0.50); Eosinophils Percent Auto 1.6 % (0.0-7.0); Hematocrit 39.6 % (33.0-51.0); Hemoglobin* 13.1 gm/dL (12.0-16.0); Immature Granulocytes Abs Auto 0.22 K/uL (0.00-0.30); Immature Granulocytes Pct Auto 2.2 %; Lymphocytes Absolute Auto 2.15 K/uL (0.90-2.90); Lymphocytes Percent Auto 21.7 % (20-44); Mean Corpuscular HGB Conc 33 gm/dL (32-36); Mean Corpuscular Hemoglobin 27 pg (26-34); Mean Corpuscular Volume 81 fL (80-100); Monocytes Percent Auto 6.6 % (0.0-11.0); Neutrophils Absolute Auto 6.69 K/uL (1.7-7.0); Neutrophils Percent Auto 67.5 % (42.0-72.0); Platelet Count* 308 K/uL (140-440); RDW Coefficient of Variation % 13.9 % (11.5-15.5); White Blood Count* 9.91 K/uL (4.50-11.00)
[2024-06-29 05:13] LABS: Slide Review Reflex No
== END 2024-06-29 05:20 | disposition home or self-care (01) ==
PROVIDERS: Emergency Provider Family Medicine; PCP Family Medicine
DX: O72.1 Other immediate postpartum hemorrhage (principal)
CPT/HCPCS: 36415; 85025; 99283; 99284

== ENCOUNTER 2024-07-24 08:14 | Outpatient (CLI) | payer OTHER, SELFPAY ==
--- NOTE | 2024-07-24 10:02 | W.PM.LAC.MF ---
Follow-Up Note: Mom Date of visit Date of visit: 07/24/24 Reason for consultation: Assistance Needed, Breast/Nipple Issue and Other (spitty baby) Visit Code: Visit Patient's Information Allergies No Known Drug Allergies Allergy (Verified 07/05/24 07:45) Delivery Information Delivery type: Vaginal Last Weight: 4.35 kg Baby's Information Baby's name: Mau mcleod Baby's Age at Visit: 1m 2d Baby's Provider or Clinic: [facility] Medications: Famotidine Current Frequency of Day Feedings: every 3 hrs Frequency of Night Feedings: One 5hr stretch, then one 4hr stretch Both Breasts: Yes Suck: strong Latch: likely shallow given mom's sore nipples Length of Time: 15 min ea side Pumping Pumping: Yes Quantity Pumped: 1.5-3oz for 1 bottle/day; 1 oz ea AM for freezer supply Supplementing EBM Supplement: No Formula Supplement: No Baby Elimination Number of Wet Diapers a Day: ea feeding Number of BM a Day: 5-6/day; yellow, seedy in color Breast/Nipple Assessment Breast/Nipple Assessment: Breasts are symmetrical with rounded lower quadrants, intramammary distance is less than 1.5 inches. No erythema. Nipples are supple, everted prior to feeding. Open sore on left nipple approx 3 o'clock position and smaller one at the 9 o'clock postion; open sore on right nipple at the 9 o'clock position. Mom describes her nipples after feedings as lipstick looking and more pointed than rounded Pumping does not hurt Breast Shape: Round Engorgement: No Maternal Nipple Condition - Left: Common Nipple Maternal Nipple Condition - Right: Common Nipple Sore Nipples: Yes Interventions for Sore Nipples: Lansinoh/Nipple Cream Onsite Observation Pre-feed weight: 4.672 kg Post-Feed weight: 4.778 kg Milk Transferred (mL): 106 Pre-Nursing Left Nipple: Crusting/Scabs (open wound) Pre-Nursing Right Nipple: Crusting/Scabs (open wound) Assessments/Interventions Assessments/Interventions: observation: watched mom latch baby first to her left breast; baby had very shallow latch and chomped his way up the nipple. Given length of mom's nipples, suggested the flipple technique; mom able to do this on the second try and baby latched easily and mom reported no pain once he started suckling. Babe heard drinking/swallowing, no struggle noted on staying latched through letdown. No smacking/clicking sounds noted that would be concerning with the posterior tongue tie. When baby unlatched after 12 min, mom notes her nipple looks more rounded than she normally sees at home and the open wound is less painful. Mom then latched baby to her right breast independently using the same technique, and again reported no pain with the start of nursing. Nipple also rounded when baby came off and less painful for mom. Wound healing Suggested continue with nipple balm, and small piece of parchment paper over wound to aid in healing. Hydrogels discussed, but given wound is on the side of her nipple, hydrogels may not be as effective. Discussed may take 1-2 weeks to heal given frequency of nursing, but hopefully less painful with deeper latch. Discussed role of posterior tongue tie; option of lasering if needed. Also discussed craniosacral therapy as an option for treatment of accesory muscle use during nursing given tongue tie. Reviewed pumping routine and answered questions about volumes and bottle feeding. Education provided: Early feeding cues to maximize timing of latching, Asymmetric latch technique for wide/deep latch to increase milk, Transfer for baby and increase comfort for mom, Sore nipple treatment options, Pumping for milk management and Milk collection, storage Follow-Up Suggested follow up: Appointment as needed Time Spent Time spent with patient (min): 90 (reviewing EMR and face to face with mom/baby) Meds Home Medications and Allergies Home Medications ?Medication ?Instructions ?Recorded ?Confirmed ?Type docosahexaenoic acid 200 mg 200 mg PO DAILY 11/16/23 07/05/24 History capsule ( DHA) Saccharomyces boulardii 250 mg 250 mg PO QDAY 02/02/24 07/05/24 History capsule (Daily Probiotic (S. boulardii)) Allergies Allergy/AdvReac Type Severity Reaction Status Date / Time No Known Drug Allergies Allergy Verified 07/05/24 07:45
== END 2024-07-24 08:15 | disposition home or self-care (01) ==
LOC: OB LAC 08:14
PROVIDERS: PCP Family Medicine; Visit Provider Obstetrics & Gynecology
DX: Z39.1 Encounter for care and examination of lactating mother (principal)
CPT/HCPCS: G0463